=== PATIENT | male | born 1990 | race Caucasian/White ===

== ENCOUNTER 2017-05-11 21:16 | Emergency (ER) | payer SELFPAY ==
[~2017-05-11] VITALS: Ht 175.3 cm; Wt 64.2 kg
[~2017-05-11 21:16] MED LIST: CLEOCIN300 MG PO; HYDROCODON-ACE1 EAC7 PO; MOTRIN600 MG PO; NAPROXEN500 MG PO; PERCOCET 5/31 TABLET PO
[2017-05-11] MEDS ORDERED: KENALOG,ARISTOC80 G1 TP (22:23)
[2017-05-11 22:34] VITALS: BP 121/73
== END 2017-05-11 22:35 | disposition home or self-care (01) ==
LOC: EME 21:16
DX: T63.441A Toxic effect of venom of bees, accidental (unintentional), initial encounter (principal)
CPT/HCPCS: 99281; 99283; J8540